=== PATIENT | male | born 1990 | race Caucasian/White ===

== ENCOUNTER 2021-02-08 19:08 | Emergency (ER) | payer OTHER ==
[~2021-02-08] VITALS: Ht 177.8 cm; Wt 95.3 kg
[2021-02-08] MEDS ORDERED: LIDOCAINE 1%-EPI 1:100,000 20 ML VIAL IJ ONE (19:45)
--- NOTE | 2021-02-08 19:45 | NUR ---
Dr Skinner at bedside for MSE.
--- NOTE | 2021-02-08 20:08 | NUR ---
Dr Skinner at bedside for I&D.
[2021-02-08] MEDS ORDERED: CEPH500C2 PO (20:14)
[2021-02-08] MEDS ORDERED: SULF1TAB48 PO (20:14)
[2021-02-08 20:29] VITALS: BP 130/92
--- NOTE | 2021-02-08 20:29 | NUR ---
Patient discharged to home in stable condition. Written and verbal after care instructions given. Patient verbalizes understanding of instructions. Stressed follow up or return to ER for worsening s/s.
== END 2021-02-08 20:29 | disposition home or self-care (01) ==
LOC: ER 19:14
DX: L72.8 Other follicular cysts of the skin and subcutaneous tissue (principal); R03.0 Elevated blood-pressure reading, without diagnosis of hypertension
CPT/HCPCS: 46050; 76882; 99284; J3490; A4663